=== PATIENT | male | born 1995 | race African-American/Black ===

== ENCOUNTER → 2021-08-27 | Outpatient (CLI) | payer OTHER ==
--- NOTE | 2021-08-27 17:49 | RAD ---
Study: 1. XR KNEE_RT 1-2 VIEWS 2. XR KNEE_AP BILAT STANDING Indication: Right knee pain. Comparison: None. Findings: On the weightbearing AP view, maintained femorotibial compartment joint space height on both the righ t and left. Patella franki with an Insall-Salvati ratio of 1.5. On the lateral view mild irregularity o f the mid trochlea. Normally positioned patella on the axial view. No large joint effusion. 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 If deemed necessary , MRI could further evaluate for any potential chondrosis and assess for the sequela of impingement i nduced by patellar maltracking. Electronically signed by: FERNANDO YATES MD (08/27/2021 5:47 PM) [id number]
== END ==
LOC: RAD 14:44
PROVIDERS: ATTEND Physician Assistant
DX: M25.561 Pain in right knee (principal)
CPT/HCPCS: 73560; 73565